=== PATIENT | female | born 1990 | race Caucasian/White ===

== ENCOUNTER 2016-09-28 13:20 | Emergency (ER) | payer OTHER ==
[~2016-09-28] VITALS: Ht 165.1 cm; Wt 82.5 kg
[~2016-09-28 13:20] MED LIST: ANAP550T PO; PRENTAB72 PO; SENN1TAB11 PO
[2016-09-28 13:23] VITALS: BP 126/88; PULSE 104; RESP 16; TEMP 98.2; O2SAT 100
--- NOTE | 2016-09-28 13:41 | PD ---
HPI Chief Complaint: Abdominal Pain Time Seen by Provider: 13:37 Travel History International Travel<30 days: No Contact w/Intl Traveler<30days: No Traveled to known affect area: No History of Present Illness HPI This is a 26-year-old female who presents to the emergency department with several months of abdominal pain described as lower, cramping, worse on the left side, nonradiating associated with abdominal distention. She says she feels like she is . She skinned a significant amount of weight in the past several months. She was told once that she had a 14 x 14 cm ovarian cyst and the expected that it would go away on its own. She's not seen a batch plant operator since then. She came in today because her pain is getting worse and her mother was getting concerned about her. She is otherwise healthy, has had no abdominal surgeries, and takes no medications. PFSH Past Medical History Medical History: Denies Significant Hx Tetanus Vaccination: Unknown Influenza Vaccination: No ?: Not LMP: 09/07/16 Past Surgical History Surgical History: No Previous Surgery Social History Alcohol Use: Yes (SOCIALLY) Tobacco Use: Yes (1/2PPD) Substance Use: No Allergies-Medications (Allergen,Severity, Reaction): Coded Allergies: No Known Allergies (Verified , 09/28/16) Reported Meds & Prescriptions Reported Meds & Active Scripts Active No Active Prescriptions or Reported Medications Review of Systems Except as stated in HPI: all other systems reviewed are Neg Physical Exam Narrative GENERAL:Well appearing, no acute distress SKIN: Focused skin assessment warm and dry. HEAD: Atraumatic. Normocephalic. EYES: Pupils equal and round. No injection or drainage. ENT: Moist mucous membranes NECK: Trachea midline. CARDIOVASCULAR: Regular rate and rhythm. No murmur appreciated. RESPIRATORY: Clear to auscultation. Breath sounds equal bilaterally. GASTROINTESTINAL: Abdomen distended, firm mass throughout the abdomen DOCENT COORDINATOR: Scant white discharge in the vault with some erythema and friability of the cervix MUSCULOSKELETAL: No obvious deformities. NEUROLOGICAL: Awake and alert. No obvious cranial nerve deficits. Moving all extremities. PSYCHIATRIC: Appropriate mood and affect; insight and judgment normal. Data Data Last Documented VS Vital Signs Date Time Temp Pulse Resp B/P Pulse Ox O2 Delivery O2 Flow Rate FiO2 09/28/16 14:10 16 98 Room Air 09/28/16 13:23 98.2 104 126/88 Orders Complete Blood Count With Diff (09/28/16 13:37) Comprehensive Metabolic Panel (09/28/16 13:37) Urinalysis - C+S If Indicated (09/28/16 13:37) Ct Abd/Pel W Iv Contrast(Rout) (09/28/16 13:37) Iv Access Insert/Monitor (09/28/16 13:37) Ecg Monitoring (09/28/16 13:37) Oximetry (09/28/16 13:37) Sodium Chloride 0.9% Flush (Ns Flush) (09/28/16 13:45) Ed Urine Pregnancytest Poc (09/28/16 13:37) Us Pelvis Comp W Doppler (09/28/16 ) Iohexol 350 Inj (Omnipaque 350 Inj) (09/28/16 14:36) Labs Laboratory Tests Test 09/28/16 13:55 White Blood Count 10.3 TH/MM3 Red Blood Count 5.54 MIL/MM3 Hemoglobin 14.8 GM/DL Hematocrit 45.0 % Mean Corpuscular Volume 81.3 FL Mean Corpuscular Hemoglobin 26.8 PG Mean Corpuscular Hemoglobin 33.0 % Concent Red Cell Distribution Width 13.6 % Platelet Count 253 TH/MM3 Mean Platelet Volume 8.8 FL Neutrophils (%) (Auto) 60.4 % Lymphocytes (%) (Auto) 29.7 % Monocytes (%) (Auto) 5.1 % Eosinophils (%) (Auto) 3.9 % Basophils (%) (Auto) 0.9 % Neutrophils # (Auto) 6.2 TH/MM3 Lymphocytes # (Auto) 3.1 TH/MM3 Monocytes # (Auto) 0.5 TH/MM3 Eosinophils # (Auto) 0.4 TH/MM3 Basophils # (Auto) 0.1 TH/MM3 CBC Comment DIFF FINAL Differential Comment Urine Collection Type VOIDED Urine Color YELLOW Urine Turbidity CLEAR Urine pH 6.0 Urine Specific [place] 1.023 Urine Protein NEG mg/dL Urine Glucose (UA) NEG mg/dL Urine Ketones NEG mg/dL Urine Occult Blood NEG Urine Nitrite NEG Urine Bilirubin NEG Urine Leukocyte Esterase NEG Urine WBC 3-5 /hpf Urine Squamous Epithelial 0-5 /hpf Cells Urine Bacteria RARE /hpf Urine Mucus MANY /lpf Microscopic Urinalysis Comment CULT NOT INDICATED Sodium Level 140 MEQ/L Potassium Level 4.1 MEQ/L Chloride Level 106 MEQ/L Carbon Dioxide Level 27.6 MEQ/L Anion Gap 6 MEQ/L Blood Urea Nitrogen 11 MG/DL Creatinine 0.77 MG/DL Estimat Glomerular Filtration 91 ML/MIN Rate Random Glucose 86 MG/DL Calcium Level 9.1 MG/DL Total Bilirubin 0.4 MG/DL Aspartate Amino Transf 23 U/L (AST/SGOT) Alanine Aminotransferase 49 U/L (ALT/SGPT) Alkaline Phosphatase 83 U/L Total Protein 7.7 GM/DL Albumin 4.0 GM/DL MDM Medical Decision Making Medical Screen Exam Complete: Yes Emergency Medical Condition: Yes Interpretation(s) Afebrile, tachycardic, normotensive No leukocytosis Electrolytes within normal limits rare bacteria in the urine Last 24 hours Impressions Abdomen/Pelvis CT 09/28/16 7 Signed Impressions: Service Date/Time: Wednesday, September 28, 2016 14:23 - CONCLUSION: 1. Massive complex cystic mass in the abdomen and pelvis most consistent with a large ovarian tumor. 2. No evidence of adenopathy or free fluid. Johnnie Velasco MD Differential Diagnosis Ovarian cancer, cervical cancer, fibroid, ascites Narrative Course This is a 26-year-old female who presents to the emergency department with increasing abdominal distention and abdominal pain that's been going on for at least 6 months. She has a protuberant abdomen on exam. She is placed in a monitor and an IV was established. Labs are obtained which are reassuring. CT demonstrates a massive complex mass in the abdomen pelvis appearing to arise from the ovary. I spoke to the on-call batch plant operator who recommended outpatient follow-up with Dr. Devika Gurrola. Patient has minimal pain and I think is appropriate for outpatient follow-up. She was given Dr. Gurrola' information and I called him regarding the patient. Diagnosis Primary Impression: Ovarian mass Referrals: Devika Gurrola MD Patient Instructions: General Instructions Additional Instructions: If you develop severe or worsening abdominal pain, fever>100.4, persistent vomiting or inability to eat or drink return to the emergency department immediately. Follow up with Dr. Gurrola without fail. Med/Other Pt SpecificInfo: No Change to Meds Scripts No Active Prescriptions or Reported Meds Disposition: 01 DISCHARGE HOME Condition: Stable Vonnie Monahan MD September 28, 2016 13:41
[2016-09-28] MEDS ORDERED: SODIUM CHLORIDE 0.9% FLUSH 10 ML FLUSH IV FLUSH PRN (13:45)
[2016-09-28 14:03] LABS: BLOOD, URINE NEG (NEG); GLUCOSE,URINE NEG (NEG); KETONE, URINE NEG (NEG); NITRITE,URINE NEG (NEG)
[2016-09-28 14:04] LABS: AUTOMATED NEUTROPHIL # 6.2 TH/MM3 (1.8-7.7); BASOPHIL # 0.1 TH/MM3 (0-0.2); BASOPHIL % 0.9 % (0.0-2.0); EOSINOPHIL # 0.4 TH/MM3 (0-0.4); EOSINOPHIL % 3.9 % (0.0-4.0); HEMO FLAGS DIFF FINAL; LYMPH % 29.7 % (9.0-44.0); LYMPHOCYTE # 3.1 TH/MM3 (1.0-4.8); MEAN CELL VOLUME 81.3 FL (80.0-100.0); MEAN CORPUSCULAR HEMOGLOBIN 26.8 PG (27.0-34.0); MONO % 5.1 % (0.0-8.0); NEUT % 60.4 % (16.0-70.0); PLATELET COUNT 253 TH/MM3 (150-450); RED BLOOD COUNT 5.54 MIL/MM3 (4.00-5.30); RED CELL DISTRIBUTION WIDTH 13.6 % (11.6-17.2); WHITE BLOOD COUNT 10.3 TH/MM3 (4.0-11.0)
[2016-09-28 14:10] VITALS: RESP 16; O2SAT 98
[2016-09-28 14:11] LABS: CHLORIDE 106 MEQ/L (98-107); POTASSIUM 4.1 MEQ/L (3.5-5.1); SODIUM (NA) 140 MEQ/L (136-145)
[2016-09-28 14:12] LABS: METHOD OF COLLECTION VOIDED; URINE COLOR YELLOW (YELLW/STRAW)
[2016-09-28 14:13] LABS: BACTERIA, URINE RARE /hpf; COMMENT (UR) CULT NOT INDICATED; CULTURE IF INDICATED CULT NOT INDICATED; MUCUS URINE MANY /lpf (OCC); SQUAMOUS EPITHELIAL CELL URINE 0-5 /hpf (0-5)
[2016-09-28 14:14] LABS: ANION GAP 6 MEQ/L (5-15); BICARBONATE 27.6 MEQ/L (21.0-32.0)
[2016-09-28 14:15] LABS: BLOOD UREA NITROGEN 11 MG/DL (7-18)
[2016-09-28 14:18] LABS: ALT (GPT) 49 U/L (10-53); AST (GOT) 23 U/L (15-37); GLOMERULAR FILTRATION RATE 91 ML/MIN (>89)
[2016-09-28 14:19] LABS: TOTAL BILIRUBIN ADULT 0.4 MG/DL (0.2-1.0)
[2016-09-28 14:20] LABS: ALKALINE PHOSPHATASE 83 U/L (45-117)
[2016-09-28] MEDS ORDERED: IOHEXOL 350 MG/ML 10 ML VIAL (for RAD DIAG) IV ONE (14:36)
--- NOTE | 2016-09-28 14:57 | RADHPO ---
EXAM DATE/TIME: 09/28/2016 14:23 [facility] COMPARISON: No previous studies available for comparison. INDICATIONS : Left abdominal pain and distention. IV CONTRAST: 75 cc Omnipaque 350 (iohexol) IV ORAL CONTRAST: No oral contrast ingested. RADIATION DOSE: 50 CTDIvol (mGy) MEDICAL HISTORY : None SURGICAL HISTORY : None. ENCOUNTER: Initial ACUITY: >1 yr PAIN SCALE: 0/10 LOCATION: Left abdomen/pelvis TECHNIQUE: Volumetric scanning of the abdomen and pelvis was performed. Using automated exposure control and ad justment of the mA and/or kV according to patient size, radiation dose was kept as low as reasonably achievable to obtain optimal diagnostic quality images. FINDINGS: LOWER LUNGS: The visualized lower lungs are clear. There is a small to moderate size retrocardiac hiatal hernia. LIVER: Homogeneous density without lesion. There is no dilation of the biliary tree. No calcified gallston es. SPLEEN: Normal size without lesion. PANCREAS: Within normal limits. KIDNEYS: Normal in size and shape. There is no mass, stone or hydronephrosis. ADRENAL GLANDS: Within normal limits. VASCULAR: There is no aortic aneurysm. BOWEL/MESENTERY: There is a massive complex cystic mass filling a large portion of the abdomen and pelvis. This measur es up to 17 cm in greatest AP diameter by 28 cm in transverse diameter by 30 cm in caudocranial dimen bryson. There are multiple septations. There are several small high density structures along the right posterior lateral aspect of the mass. The mass displaces the bowel to the periphery with no evidence of obstruction or inflammatory change. There is no evidence of free air or fluid. Masses in continuit y with the anterior uterus. ABDOMINAL WALL: Within normal limits. RETROPERITONEUM: There is no lymphadenopathy. BLADDER: No wall thickening or mass. REPRODUCTIVE: The uterus is unremarkable in appearance. The ovaries are not well visualized. The mass is in continu ity with the uterus. INGUINAL: There is no lymphadenopathy or hernia. MUSCULOSKELETAL: Within normal limits for patient age. CONCLUSION: 1. Massive complex cystic mass in the abdomen and pelvis most consistent with a large ovarian tumor. 2. No evidence of adenopathy or free fluid. Johnnie Velasco MD on September 28, 2016 at 14:50 Board Certified Radiologist. This report was verified electronically.
[2016-09-28 15:28] VITALS: BP 112/64
--- NOTE | 2016-09-28 15:43 | RADHPO ---
EXAM DATE/TIME: 09/28/2016 14:45 [facility] COMPARISON: CT ABDOMEN & PELVIS W CONTRAST, September 28, 2016, 14:23. INDICATIONS : Pelvic pain. Abdominal distention. Massive complex cystic lesion in the abdomen and pelvis seen on CT . MEDICAL HISTORY : Pelvic pain. Abdominal distention. Ovarian cyst. History of . Tobacco use. SURGICAL HISTORY : None. ENCOUNTER: Initial ACUITY: 4-6 months PAIN SCORE: 5/10 LOCATION: Bilateral pelvis MEASUREMENTS: UTERUS: 9.0 x 4.4 x 5.2 cm ENDOMETRIAL STRIPE: 7 mm RIGHT OVARY: 2.4 x 2.4 x 1.7 cm LEFT OVARY: 2.9 x 2.7 x 1.8 cm FINDINGS: UTERUS: The myometrium has homogeneous echotexture without mass. RIGHT OVARY: Ovary contains no mass or significant cystic lesion. LEFT OVARY: Ovary contains no mass or significant cystic lesion. MISCELLANEOUS: There is a large complex cystic structure filling the pelvis extending into the abdomen measuring up to at least 28 x 25 x 24 cm. This comes in close proximity to both ovaries. CONCLUSION: Large complex cystic mass again noted filling the majority of the pelvis and rising i nto the abdomen. This is nonspecific but remains most characteristic of an ovarian tumor. It is not c lear which ovary this arises from. Johnnie Velasco MD on September 28, 2016 at 15:39 Board Certified Radiologist. This report was verified electronically.
[2016-09-28 16:35] LABS: BETA HCG TUMOR MARKER LESS THAN 1 MIU/ML (0-5)
[2016-09-28 17:29] LABS: LDH SERUM 173 U/L (84-246)
== END 2016-09-28 16:20 | disposition home or self-care (01) ==
LOC: PHED 13:20
DX: N83.9 Noninflammatory disorder of ovary, fallopian tube and broad ligament, unspecified (principal); F17.210 Nicotine dependence, cigarettes, uncomplicated; R00.0 Tachycardia, unspecified
CPT/HCPCS: 74177; 76856; 80053; 81001; 82105; 83615; 84702; 84703; 85025; 86304; 93975; 99285; Q9967

== ENCOUNTER 2016-10-12 11:43 | Inpatient (IN) | payer OTHER ==
[~2016-10-12] VITALS: Ht 165.1 cm; Wt 81.1 kg
[2016-10-13] MEDS ORDERED: LACTATED RINGER'S 1000 ML IV PRN (09:00)
[2016-10-13] MEDS ORDERED: SODIUM CHLORID 0.9% 500 ML IV PRN (09:00)
[2016-10-13] MEDS ORDERED: METOPROLOL TARTRATE 25 MG TAB PO PRN (09:00)
[2016-10-13] MEDS ORDERED: HEPARIN SODIUM - SQ 10,000 UNITS/ML VIAL SQ SCH (09:00)
[2016-10-13] MEDS ORDERED: INSULIN HUMAN REGULAR 1,000 UNITS/10 ML VIAL SQ PRN (09:00)
[2016-10-13] MEDS ORDERED: POVIDONE IODINE 5% (ANTISEPSIS KIT) 4 APPLICATIONS EACH NARE PRN (09:00)
[2016-10-13] MEDS ORDERED: ceFAZolin 2 GM PREMIX 50 ML IV SCH (09:00)
[2016-10-13] MEDS ORDERED: CHLORHEXIDINE GLUCONATE 2 % 1 PACK (2 CLOTHS) TOPICAL PRN (09:00)
[2016-10-13 09:23] VITALS: BP 113/79; PULSE 97; RESP 16; TEMP 98.8; O2SAT 100
[2016-10-13] MEDS ORDERED: ONDANSETRON HCL 4 MG/2 ML VIAL ONE (10:47)
[2016-10-13] MEDS ORDERED: FAMOTIDINE 20 MG/2 ML VIAL ONE (10:47)
[2016-10-13] MEDS ORDERED: HYDROmorphone HCL PF 2 MG/ML VIAL ONE (10:59)
[2016-10-13] MEDS ORDERED: ACETAMINOPHEN 1000 MG/100 ML VIAL IV ONE (11:11)
[2016-10-13] MEDS ORDERED: MIDAZOLAM HCL 2 MG/2 ML VIAL ONE (11:12)
[2016-10-13] MEDS ORDERED: DEXAMETHASONE SOD PHOS 4 MG/ML VIAL ONE (11:12)
[2016-10-13] MEDS ORDERED: DICLOFENAC SODIUM 37.5 MG/ML VIAL IV PUSH ONE ×2 (11:12→12:00)
[2016-10-13] MEDS ORDERED: METOCLOPRAMIDE HCL 10 MG/2 ML VIAL ONE (11:12)
[2016-10-13] MEDS ORDERED: fentaNYL CITRATE 250 MCG/5 ML AMP ONE ×2 (11:12)
[2016-10-13] MEDS ORDERED: APREPITANT 40 MG CAP ONE (11:16)
[2016-10-13] MEDS ORDERED: NORMOSOL R INJ 1,000 ML IV ONE (12:00)
[2016-10-13] MEDS ORDERED: LACTATED RINGER'S 1000 ML INJ 2,000 ML IV ONE (12:00)
[2016-10-13] MEDS ORDERED: ONDANSETRON HCL 4 MG/2 ML VIAL IV PUSH ONE (12:00)
[2016-10-13] MEDS ORDERED: PROPOFOL 200 MG/20 ML AMP IV ONE (12:00)
[2016-10-13] MEDS ORDERED: NEOSTIGMINE 3 MG/3 ML SYR IV ONE (12:00)
[2016-10-13] MEDS ORDERED: ePHEDrine/NS 25 MG/5 ML SYR IV ONE (12:00)
[2016-10-13] MEDS ORDERED: PHENYLEPH/NS 1000 MCG/10 ML SYR IV ONE (12:00)
[2016-10-13] MEDS ORDERED: DO NOT ADM ANY ANTICOAGULANT DRUGS PRN (14:25)
[2016-10-13] MEDS ORDERED: NALOXONE HCL 0.4 MG/ML AMP IV PRN (14:30)
[2016-10-13] MEDS ORDERED: SODIUM CHLORIDE 0.9% FLUSH 10 ML FLUSH IV FLUSH PRN (14:30)
[2016-10-13] MEDS: D5-1/2 NS + KCL 20 MEQ INJ 1,000 ML IV SCH ×2 (15:00→22:36)
[2016-10-13] MEDS ORDERED: ONDANSETRON HCL 4 MG/2 ML VIAL IVP PRN (15:00)
[2016-10-13] MEDS ORDERED: oxyCODONE/ACETAMINOPHEN 5 MG/325 MG TAB PO PRN ×2 (15:00)
[2016-10-13] MEDS ORDERED: diphenhydrAMINE HCL 25 MG CAP PO PRN (15:00)
[2016-10-13] MEDS ORDERED: LORazepam 0.5 MG TAB PO PRN (15:00)
[2016-10-13] MEDS ORDERED: *morphine SULFATE 8 MG/ML PERIprocedure ONLY ONE ×3 (15:10→16:13)
[2016-10-13] MEDS: MORPHINE SULFATE 30 MG/30 ML PCA IV SCH ×2 (17:21→23:11)
[2016-10-13] MEDS: KETOROLAC TROMETHAMINE 30 MG/ML (IVP) VIAL IVP SCH ×2 (18:00→23:16)
[2016-10-13 20:14] VITALS: BP 100/55; PULSE 88; RESP 18; TEMP 97.9
[2016-10-13] MEDS: SODIUM CHLORIDE 0.9% FLUSH 10 ML FLUSH IV FLUSH SCH (21:00)
[2016-10-13] MEDS: PCA - TOTAL MG MORPHINE DELIVERED PER SHIFT SCH (22:00)
[2016-10-14] VITALS (8 sets, daily range): BP systolic 92–112; BP diastolic 50–61; PULSE 69–81; RESP 16–20; TEMP 96.6–98.6; O2SAT 96–100
[2016-10-14] MEDS: KETOROLAC TROMETHAMINE 30 MG/ML (IVP) VIAL IVP SCH ×3 (05:50→17:42)
[2016-10-14] MEDS: D5-1/2 NS + KCL 20 MEQ INJ 1,000 ML IV SCH (05:50)
[2016-10-14] MEDS: PCA - TOTAL MG MORPHINE DELIVERED PER SHIFT SCH ×3 (05:58→21:54)
[2016-10-14 07:02] LABS: AUTOMATED NEUTROPHIL # 9.9 TH/MM3 (1.8-7.7); BASOPHIL % 0.1 % (0.0-2.0); EOSINOPHIL % 0.3 % (0.0-4.0); HEMATOCRIT 39.8 % (35.0-46.0); HEMO FLAGS DIFF FINAL; LYMPH % 13.6 % (9.0-44.0); LYMPHOCYTE # 1.7 TH/MM3 (1.0-4.8); MEAN CELL VOLUME 82.4 FL (80.0-100.0); MEAN CORPUSCULAR HEMOGLOBIN 26.9 PG (27.0-34.0); MEAN CORPUSCULAR HGB CONC 32.6 % (32.0-36.0); MONO % 7.8 % (0.0-8.0); NEUT % 78.2 % (16.0-70.0); PLATELET COUNT 217 TH/MM3 (150-450); RED BLOOD COUNT 4.82 MIL/MM3 (4.00-5.30); RED CELL DISTRIBUTION WIDTH 14.1 % (11.6-17.2); WHITE BLOOD COUNT 12.7 TH/MM3 (4.0-11.0)
[2016-10-14 07:22] LABS: BICARBONATE 27.4 MEQ/L (21.0-32.0); POTASSIUM 4.3 MEQ/L (3.5-5.1)
--- NOTE | 2016-10-14 07:49 | PD.ONC.PN ---
Subjective Subjective Remarks POD #1 pt resting in bed using GLOVE CLEANER but feels Toradol is helping her pain more no complaints drinking fluids will advance diet IS at bedside pt using as instructed will get OOB to chair and ambulate with assistance Objective Data Date Time Temp Pulse Resp B/P Pulse Ox O2 Delivery O2 Flow Rate FiO2 10/14/16 05:58 16 10/14/16 04:00 98.0 75 19 92/54 100 10/14/16 00:00 97.9 81 19 96/53 96 10/13/16 23:11 16 10/13/16 22:00 16 10/13/16 20:14 97.9 88 18 100/55 10/13/16 19:00 100 20 98/51 97 Room Air 10/13/16 18:00 89 17 100/55 97 Room Air 10/13/16 17:21 16 10/13/16 17:00 89 14 95/56 94 Room Air 10/13/16 16:30 78 16 96/53 94 Room Air 10/13/16 16:18 15 10/13/16 16:00 98.7 86 17 100/56 97 Room Air 10/13/16 15:30 90 19 97/55 99 Room Air 10/13/16 15:28 16 10/13/16 15:15 82 18 96/51 99 Room Air 10/13/16 15:15 15 10/13/16 15:00 85 18 96/55 100 Room Air 10/13/16 14:45 93 14 98/53 100 Room Air 10/13/16 14:29 97.6 113 13 98/48 100 Room Air 10/13/16 09:23 98.8 97 16 113/79 100 Result Diagram: 10/14/16 0614 10/14/16 0614 Laboratory Results Laboratory Tests Test 10/13/16 10/14/16 09:15 06:14 Blood Type A POSITIVE Antibody Screen NEGATIVE White Blood Count 12.7 TH/MM3 Red Blood Count 4.82 MIL/MM3 Hemoglobin 13.0 GM/DL Hematocrit 39.8 % Mean Corpuscular Volume 82.4 FL Mean Corpuscular Hemoglobin 26.9 PG Mean Corpuscular Hemoglobin 32.6 % Concent Red Cell Distribution Width 14.1 % Platelet Count 217 TH/MM3 Mean Platelet Volume 9.1 FL Neutrophils (%) (Auto) 78.2 % Lymphocytes (%) (Auto) 13.6 % Monocytes (%) (Auto) 7.8 % Eosinophils (%) (Auto) 0.3 % Basophils (%) (Auto) 0.1 % Neutrophils # (Auto) 9.9 TH/MM3 Lymphocytes # (Auto) 1.7 TH/MM3 Monocytes # (Auto) 1.0 TH/MM3 Eosinophils # (Auto) 0.0 TH/MM3 Basophils # (Auto) 0.0 TH/MM3 CBC Comment DIFF FINAL Differential Comment Sodium Level 141 MEQ/L Potassium Level 4.3 MEQ/L Chloride Level 107 MEQ/L Carbon Dioxide Level 27.4 MEQ/L Anion Gap 7 MEQ/L Blood Urea Nitrogen 6 MG/DL Creatinine 0.75 MG/DL Estimat Glomerular Filtration 94 ML/MIN Rate Random Glucose 93 MG/DL Calcium Level 8.3 MG/DL Administered Medications Medications (Trade) Dose Ordered Sig/Stacie Route PRN Reason Start Time Stop Time Status Last Admin Dose Admin Lactated Ringer's 1,000 ml @ 30 mls/hr Q24H PRN IV SEE LABEL COMMENTS 10/13/16 09:00 10/16/16 08:59 10/13/16 09:31 Potassium Chloride/Dextrose/ Sod Cl (D5-1/2 NS + KCl 20 Meq Inj) 1,000 ml @ 125 mls/hr Q8H IV 10/13/16 15:00 10/14/16 05:50 Ketorolac Tromethamine (Toradol Inj) 30 mg Q6H IVP 10/13/16 18:00 10/16/16 12:01 10/14/16 05:50 Ondansetron HCl (Zofran Inj) 4 mg Q6H PRN IVP NAUSEA OR VOMITING 10/13/16 15:00 10/13/16 20:09 Morphine Sulfate (Morphine 1 Mg/ ml GLOVE CLEANER) 30 mg UNSCH IV 10/13/16 14:30 10/13/16 23:11 GLOVE CLEANER Dosage Infused (Pha) 1 Q8HR .XX 10/13/16 22:00 10/14/16 05:58 Objective Remarks GENERAL: Well-nourished, well-developed patient. SKIN: Warm and dry. HEAD: Normocephalic. EYES: No scleral icterus. No injection or drainage. CARDIOVASCULAR: Regular rate and rhythm without murmurs. RESPIRATORY: Breath sounds equal bilaterally. No accessory muscle use. GASTROINTESTINAL: Abdomen dressing is C/D/I, abdominal binder EXTREMITIES: No cyanosis, or edema. MUSCULOSKELETAL: Adequate muscle tone. NEUROLOGICAL: No obvious focal deficit. Awake, alert, and oriented x3. PSYCHIATRIC: Appropriate mood and affect; insight and judgment normal. Assessment/Plan Problem List: (1) Ovarian mass Status: Resolved Plan: POD #1 s/p X Lap for resection of pelvic mass final path pending but appears benign she will follow up in our office in 2 weeks for final path (2) Post-operative state Status: Acute Plan: GLOVE CLEANER and Toradol for pain OOB to chair and ambulate today decreased IVF to KVO ADAT D/C santa on POD #2 anticipate d/c home in the next 24-48 hours Hugh Murray Oct 14, 2016 07:49
[2016-10-14] MEDS: SODIUM CHLORIDE 0.9% FLUSH 10 ML FLUSH IV FLUSH SCH ×2 (08:04→21:00)
--- NOTE | 2016-10-14 08:14 | MP ---
cc: TREVOR HAAS MD DATE OF SURGERY 10/13/2016 PREOPERATIVE DIAGNOSIS Large abdominopelvic mass. POSTOPERATIVE DIAGNOSIS Right ovarian mucinous cystadenoma. PROCEDURE Exploratory laparotomy, resection of 30 cm ovarian mass (via right salpingo-oophorectomy) SURGEON Trevor Haas MD ANAESTHETIC TECHNICIAN Cloud patient observation assistant ANESTHESIA General endotracheal anesthesia ESTIMATED BLOOD LOSS 100 cc IV FLUIDS 1900 URINE OUTPUT 300 FLUID DRAINED FROM THE MASS 7850 cc HISTORY This is a 26-year-old female who has had gradually increasing abdominal pelvic distension. She reports that she presented to the emergency room approximately a year or a year and a half ago where she was found have a 15 cm cystic mass on the ovary. Her impression was that it was anticipated that this mass would resolve on its own. No intervention was undertaken. She did not have follow up. She continued to have increasing symptomatology, a sense of distension and pressure and presented recently to [facility] emergency room. IMAGING STUDIES Updated imaging showed an approximately 28-30 cm smooth-walled cystic mass with a few internal septations. It extended from the pelvis all the way to the abdomen with the upper edge of the mass abutting the undersurface of the liver and the lower edge of the mass extending down into the pelvis near the cul-de-sac and extending from sidewall to sidewall of the peritoneal cavity. She was counseled regarding these findings in the holding likelihood that this represent a large benign neoplasm of the ovary. She wanted conservative management with respect to preservation of fertility and avoidance of premature menopause if possible. She understands that removal of this mass in all probability will require removing the tube and ovary from one side. She was counseled regarding surgical approaches. She does not favor laparoscopy as she preferred not to have any visible incision scars on her abdomen, preferred the option of a low transverse incision that could be concealed beneath clothing and bathing suit. She understands that plan might be modified after the modified based on surgical findings. She was seen again in the preop holding area where these findings, concerns and surgical approaches are discussed and reviewed. Questions were asked and answered. She expressed a good understanding and would like to move forward with surgery. FINDINGS Upon exploration, a very large, smooth-walled cystic mass was confirmed. The anatomy could not be initially determined, but as aspiration of the fluid was initiated and the size of the mass reduced and some mobility was provided, it became clear that it was arising from the right ovary and replacing the right ovary. It was smooth-walled with minimal to absent adhesions except for a few adhesions from the omentum otherwise it was nonadherent and mobility was possible once the massive amount of fluid was drained from it. There were no peritoneal implants. No nodules. No adenopathy. Frozen section analysis of this mass was consistent with a benign mucinous cystadenoma. PROCEDURE The patient was taken to the operating room, placed in the dorsal lithotomy position after general endotracheal anesthesia was administered. Time-out was undertaken. She was identified by sight recognition and hospital ID bracelet and the proposed procedure was reviewed and confirmed. She was carefully positioned in padded Hans stirrups. Her arms were secured out to the sides. Time-out was undertaken and she was identified by sight recognition and hospital ID bracelet and the proposed plan was reviewed and confirmed. She was prepped and draped in a sterile fashion. Rios catheter placed in the bladder. Ioban used to help cover the abdominal wall as she was draped. A low-transverse skin incision was made approximately 2 cm above the symphysis, carried down to the level of the fascia. The subcutaneous tissue was then mobilized up toward the umbilicus and down toward the symphysis and a midline incision was made in the fascia. The incision was carried down to the level of the rectus muscles which were in the midline and then peritoneal cavity was entered. The peritoneal incision was extended the length of the fascial incision. A lap pad was used to wrap around the base of the mass. Visual and palpable inspection of the mass confirmed findings as described above and needle aspiration was initiated first using a small bore needle to slowly aspirate to remove the pressure from the mass to avoid rupture or spill of fluid. After over a liter of fluid was removed, the wall of the mass was grasped with Adson's clamps and a larger bore suction device was introduced for more rapid aspiration of fluid. This process was continued until the large primary cystic component had been drained of approximately six liters of fluid. The portion of the mass could now be delivered through the abdominal wall incision and a separate internal cystic mass was noted which was consistent with findings on CT scan and expected and again needle aspiration was performed of this cyst until the pressure was reduced and a larger bore suction catheter was placed to drain the fluid. There were a few smaller cysts remaining, but at this point, 7850 cc had been removed. Now the mass could be delivered through the abdominal incision. Small adhesions to the omentum were removed with blunt dissection. The origin of the mass was clearly the right ovary and attention was directed towards removal. Retroperitoneal dissection was carried out on the right side. The right infundibulopelvic ligament was isolated. The right ureter was identified. The intervening peritoneum was opened. The infundibulopelvic ligament was isolated to the level of the pelvic brim where it was doubly clamped, cut and doubly suture ligated. Now the peritoneum was dissected toward the uterus to isolate the right utero-ovarian ligament. The right utero-ovarian ligament was then doubly clamped, cut and doubly suture ligated this large mass which was removed and sent for frozen section analysis. The pelvis was thoroughly irrigated. Small bleeders at the edge of the omentum were cauterized with bipolar cautery. The anatomy was inspected with findings as described above, a normal-appearing uterus, small functional cyst on the left ovary. No peritoneal implants. No adenopathy. Preliminary and final counts were correct. There were no remaining foreign objects in the peritoneal cavity. It was felt that all reasonable surgical objectives were completed. Attention was directed toward closing. The fascia was closed with 0-PDS starting at the apices with a running continuous modified Smead-Berumen closure meeting in the point where the sutures were tied and then the knot was inverted below the level of the fascia. The subcutaneous tissue was irrigated. Small bleeders rendered hemostatic with bipolar cautery. Interrupted 2-0 Vicryl sutures were used to reestablish and reapproximate the subcutaneous tissue to the fascia and to reduce the space. 2-0 Vicryl sutures were used to reapproximate Fred's fascia which lined up the skin edges without tension and a 3-0 Monocryl subcuticular closure was used to close the skin. Steri-Strips, a dry sterile dressing was placed over the incision. Final counts were correct. She was returned to dorsal supine position and pending reversal of anesthesia when I left the operating room to precede her to the Post Anesthesia Care Unit. MD JUSTUS Huston/JET /4:52 AM /7:38 AM
[2016-10-14] MEDS ORDERED: PNEUMOCOCCAL POLYVALENT INJ 25 MCG/0.5 ML SYR IM ONE (09:00)
[2016-10-14] MEDS: MORPHINE SULFATE 30 MG/30 ML PCA IV SCH (17:41)
[2016-10-14] MEDS: DOCUSATE SODIUM 100 MG CAP PO SCH (21:47)
[2016-10-15] VITALS: BP 106/63; PULSE 83; RESP 20; TEMP 97.5; O2SAT 99
[2016-10-15] MEDS: KETOROLAC TROMETHAMINE 30 MG/ML (IVP) VIAL IVP SCH ×2 (00:19→05:01)
[2016-10-15 04:00] VITALS: BP 100/52; PULSE 75; RESP 21; TEMP 97.4; O2SAT 100
[2016-10-15] MEDS: PCA - TOTAL MG MORPHINE DELIVERED PER SHIFT SCH (05:04)
[2016-10-15] MEDS: D5-1/2 NS + KCL 20 MEQ INJ 1,000 ML IV SCH (06:40)
[2016-10-15] MEDS ORDERED: OXYC1TAB63 PO (07:22)
[2016-10-15 08:00] VITALS: BP 110/74; PULSE 70; RESP 16; TEMP 97.3; O2SAT 99
[2016-10-15] MEDS: DOCUSATE SODIUM 100 MG CAP PO SCH (08:12)
--- NOTE | 2016-10-19 08:20 | MD ---
cc: TREVOR HAAS MD ADMISSION DATE: 10/13/2016 DISCHARGE DATE: 10/15/2016 PROCEDURE 10/13/2016: Exploratory laparotomy, right salpingo-oophorectomy (with resection of 30 cm mucinous cystadenoma). HOSPITAL COURSE Did well in early hospitalization. Postop labs showed an H&H of 13 and 39.8. Electrolytes were normal. She is tolerating oral intake. Rois catheter is out. She has voided without difficulty, hemodynamically stable and adequate pain control. PHYSICAL EXAMINATION VITAL SIGNS: On exam she is afebrile. Pulse ranging 75-83, respirations 18-20, blood pressure 100-106 over 52-63, O2 saturations greater than equal to 99%. GENERAL: Alert and oriented x3. LUNGS: Clear. CARDIOVASCULAR: Regular rate and rhythm. ABDOMEN: Soft. Incision clean and dry. EXTREMITIES: Nontender. ASSESSMENT Postoperative day #2 doing well in postoperative recovery. Findings, preliminary pathology, activities, restrictions discussed. Questions were answered. She expressed good understanding. PLAN Anticipate discharge to home today. She is to contact our office to schedule follow up in 2 weeks. She has no preexisting prescription medication. She is going to have a prescription for Percocet and she can supplement or substitute with [id number] medications and our office number is made available should she have any questions or problems between now and the time of scheduled followup. MD JUSTUS Paulino/TLL /7:27 AM /8:18 AM
== END 2016-10-15 10:34 | disposition home or self-care (01) | DRG 743 ==
LOC: HSDI 10-13 08:33 → HOCA 10-13 20:09 → UNDODISIN 10-14 15:26 → HOCB 10-14 17:49 → HOCA 10-14 17:53 → HOCB 10-14 18:16 → HOCA 10-14 18:19
PROVIDERS: ADMIT Obstetrics & Gynecology Gynecologic Oncology; ATTEND Obstetrics & Gynecology Gynecologic Oncology
PROC: 0UT00ZZ Resection of Right Ovary, Open Approach (ICD-10-PCS; 2016-10-13)
PROC: 0UT50ZZ Resection of Right Fallopian Tube, Open Approach (ICD-10-PCS; principal; 2016-10-13 11:23)
DX: D27.0 Benign neoplasm of right ovary (principal); F17.210 Nicotine dependence, cigarettes, uncomplicated; K21.9 Gastro-esophageal reflux disease without esophagitis
CPT/HCPCS: 80048; 85025; 86850; 86900; 86901; 88305; 88307; 88331; 94150; J0131; J0690; J1100; J1130; J1170; J1644; J1885; J2250; J2270; J2370; J2405; J2710; J2765; J3010; J3480; J7120; J8501